=== PATIENT | male | born 2000 | race Caucasian/White ===

== ENCOUNTER 2018-02-14 15:10 | Emergency (ER) | payer OTHER ==
[~2018-02-14] VITALS: Ht 180.3 cm; Wt 86.2 kg
[2018-02-14 15:17] VITALS: BP 155/61
[2018-02-14] MEDS ORDERED: MUPI15CR TP (15:38)
--- NOTE | 2018-02-14 16:15 | ED.ADGEN ---
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 The schools are discussed grabbed his painful, mildly erythematous. Patient first noticed vesicles after training 3 days ago. He is instructed to go to the ED for evaluation due to continued pain and difficulty completing current training. Denies chronic medical problems. Lesions are nonpurulent. No other rashes or vesicles present. Review of Systems Review of Systems ROS as per HPI All other systems were reviewed and found to be within normal limits, except as documented in this note. Allergies Allergies Allergies Coded Allergies Type Severity Reaction Last Updated Verified No Known Drug Allergies 02/14/18 No Physical Exam Physical Exam Constitutional: Well developed, well nourished, no acute distress, non-toxic appearance. [] Extremities: Hypo-thenar eminence, 4 isolated .5-1.5 cm indurated tender vehicles. No surrounding erythema, streaking. no purulent drainage[] Current Patient Data Vital Signs Vital Signs Date Time Temp Pulse Resp B/P (MAP) Pulse Ox O2 Delivery O2 Flow Rate FiO2 02/14/18 15:17 99.1 73 16 100 Room Air EKG EKG [] Radiology/Procedures Radiology/Procedures [] Course & Med Decision Making Course & Med Decision Making Pertinent Labs and Imaging studies reviewed. (See chart for details) [Vesicles lanced and clear fluid obtained and sent for culture. Topical antibiotics applied, vesicles bandaged. Instructions to follow-up with PCP] Final Impression Final Impression [1. Left hand vesicles] Dragon Disclaimer Dragon Disclaimer This electronic medical record was generated, in whole or in part, using a voice recognition dictation system. MERVIN SONI DO Feb 14, 2018 16:15
== END 2018-02-14 15:44 | disposition home or self-care (01) ==
LOC: ER 15:10
DX: L98.8 Other specified disorders of the skin and subcutaneous tissue (principal)
CPT/HCPCS: 87070; 99283; 99284